=== PATIENT | female | born 1985 | race Caucasian/White ===

== ENCOUNTER 2016-10-10 02:33 | Emergency (ER) | payer OTHER | END 2016-10-10 04:33 | disposition home or self-care (01) | LOC: CED 02:33 | DX: S01.511A Laceration without foreign body of lip, initial encounter (principal); F17.210 Nicotine dependence, cigarettes, uncomplicated; W26.0XXA Contact with knife, initial encounter; Y92.009 Unspecified place in unspecified non-institutional (private) residence as the place of occurrence of the external cause | CPT/HCPCS: 12051; 99283 ==